=== PATIENT | female | born 1970 | race Two or more races ===

== ENCOUNTER 2017-01-28 07:34 | Inpatient (IN) | payer SELFPAY ==
[~2017-01-28] VITALS: Ht 157.5 cm; Wt 73.2 kg
[2017-01-28 08:09] LABS: Basophils # (auto) 0 uL; Basophils % (auto) 0.3 % (0.0-2.0); CONDITION Y; Eosinophils # (auto) 0.2 uL; Hemoglobin 13.9 g/dL (12.2-16.2); Lymphocytes # (auto) 3.3 uL; Lymphocytes % (auto) 41.7 % (10.0-50.0); Mean Corpuscular Hemoglobin 30.7 pg (28.0-32.0); Mean Corpuscular Hgb Conc. 34.6 g/dL (32.0-36.0); Mean Corpuscular Volume 88.6 fL (80.0-100.0); Mean Platelet Volume 9.9 fL (7.4-10.4); Monocytes # (auto) 0.5 uL; Monocytes % (auto) 6.2 % (0.0-12.0); Neutrophils % (auto) 49.8 % (37.0-80.0); Platelet Count (auto) 284 10^3/uL (140-450); Red Cell Distribution Width 12.9 % (11.6-16.0); White Blood Cell 7.9 10^3/uL (4.4-10.8)
[2017-01-28 08:30] LABS: Albumin 4.1 g/dL (3.4-5.0); BUN/Creatinine Ratio 28.9; Calcium 8.8 mg/dL (8.5-10.1); Magnesium 2.1 mg/dL (1.6-2.6); Potassium 3.7 mmol/L (3.5-5.1)
[2017-01-28 08:34] LABS: Bilirubin, Total 0.4 mg/dL (0.2-1.0); Total Protein 7.7 g/dL (6.4-8.2)
[2017-01-28 08:52] LABS: Urine Bilirubin Negative (Negative); Urine Color Yellow (Yellow); Urine Glucose Normal (Normal); Urine Ketone Negative (Negative); Urine Nitrite Negative (Negative); Urine RBC 58 /hpf (0 - 4); Urine Squamous Epithelial Cell FEW /hpf (<5); Urine Urobilinogen Normal (Negative); Urine pH 5.5 (5.0-8.0)
[2017-01-28 08:53] LABS: Urine Blood 2+ /uL (Negative)
[2017-01-28] MEDS ORDERED: SODIUM CHLORIDE 0.9% 1,000 ML IV ONE ×2 (09:38)
[2017-01-28] MEDS ORDERED: KETOROLAC TROMETH 30 MG/ML 1ML VIAL IV ONE (09:45)
[2017-01-28] MEDS: SODIUM CHLORIDE 0.9% 1,000 ML IV SCH ×2 (12:43→22:37)
[2017-01-28] MEDS ORDERED: PROMETHAZINE HCL 25 MG/ML 1ML IV PRN (12:45)
[2017-01-28] MEDS ORDERED: NITROGLYCERIN 0.4 MG SL TAB SL PRN (12:45)
[2017-01-28] MEDS ORDERED: DEXTROSE (50%) 50ML SYRG IV PRN (12:45)
[2017-01-28] MEDS ORDERED: LORazepam 0.5 MG TAB PO PRN (12:45)
[2017-01-28] MEDS ORDERED: cefTRIAXone 1GM/50ML D5W 50 ML IV ONE (12:45)
[2017-01-28] MEDS ORDERED: TEMAZEPAM 15 MG CAP PO PRN (12:45)
[2017-01-28] MEDS ORDERED: HYDROcodone-ACET 5/325MG TAB PO PRN (12:45)
[2017-01-28] MEDS ORDERED: MORPHINE SULF INJ 2 MG/ML SYRINGE 1ML IV PRN ×2 (12:45)
[2017-01-28] MEDS ORDERED: ACETAMINOPHEN 500 MG TAB PO PRN (12:45)
[2017-01-28 17:13] VITALS: BP 102/64
[2017-01-28] MEDS: ACCU-CHEK COMFORT CURVE STRIP VI SCH (18:22)
[2017-01-28 20:00] VITALS: BP 109/57
[2017-01-28 21:53] VITALS: BP 109/57
[2017-01-28] MEDS: FAMOTIDINE 20 MG TAB PO SCH (22:35)
[2017-01-29] VITALS (7 sets, daily range): BP systolic 112–130; BP diastolic 65–80
[2017-01-29] MEDS: ACCU-CHEK COMFORT CURVE STRIP VI SCH ×4 (06:00→18:00)
[2017-01-29 08:31] LABS: INR 0.95 (0.9-1.15); Partial Thromboplastin Time 24.3 sec (22.64-33.71); Prothrombin Time 10.4 sec (9.37-12.3)
[2017-01-29] MEDS: FAMOTIDINE 20 MG TAB PO SCH ×2 (10:00→22:01)
[2017-01-29] MEDS: cefTRIAXone 1GM/50ML D5W 50 ML IV SCH (11:10)
[2017-01-29] MEDS: SODIUM CHLORIDE 0.9% 1,000 ML IV SCH (11:10)
[2017-01-30 04:39] VITALS: BP 118/77
[2017-01-30] MEDS: ACCU-CHEK COMFORT CURVE STRIP VI SCH ×4 (06:05→17:34)
[2017-01-30 08:00] VITALS: BP 113/65
[2017-01-30] MEDS: cefTRIAXone 1GM/50ML D5W 50 ML IV SCH (08:40)
[2017-01-30 09:32] VITALS: BP 113/65
[2017-01-30] MEDS: FAMOTIDINE 20 MG TAB PO SCH (10:00)
[2017-01-30] MEDS ORDERED: IOHEXOL 300 MG/ML 100ML BOTTLE IJ ONE (13:57)
[2017-01-30 14:47] VITALS: BP 122/75
[2017-01-30] MEDS ORDERED: LIDOCAINE HCL 2 %PF INJ 10ML AMP IJ ONE (15:04)
[2017-01-30] MEDS ORDERED: FUROSEMIDE 20 MG/2 ML VIAL IV ONE (15:04)
[2017-01-30] MEDS ORDERED: PROPOFOL 10 MG/ML 20 ML IV ONE (15:04)
[2017-01-30] MEDS ORDERED: DEXAMETHASONE SOD PHOS 10MG/1ML VIAL INJ ONE (15:04)
[2017-01-30] MEDS ORDERED: GLYCOPYRROLATE 0.2 MG/ML 1ML VIAL ONE (15:04)
[2017-01-30] MEDS ORDERED: fentaNYL CITRATE 100 MCG/2 ML VL ONE (15:04)
[2017-01-30] MEDS ORDERED: ONDANSETRON HCL 4 MG/2 ML VIAL ONE (15:04)
[2017-01-30] MEDS ORDERED: KETOROLAC TROMETH 60MG/2ML VIAL IM ONE (15:04)
[2017-01-30] MEDS ORDERED: MIDAZOLAM HCL 1MG/1ML-2 ML VIAL ONE (15:04)
[2017-01-30] MEDS ORDERED: CIPR-173 PO (15:36)
[2017-01-30] MEDS ORDERED: TRAM50TA2 PO (15:36)
[2017-01-30] MEDS ORDERED: ONDANSETRON HCL 4 MG/2 ML VIAL IV ONE (16:00)
[2017-01-30 16:30] VITALS: BP 122/75
[2017-01-30 16:54] VITALS: BP 134/75
== END 2017-01-30 19:25 | disposition home or self-care (01) | DRG 669 ==
LOC: ER 07:34 → OVERFLOW 07:35 → WEST WING 16:46
PROVIDERS: ADMIT Internal Medicine; ATTEND Internal Medicine
PROC: 0TP98DZ Removal of Intraluminal Device from Ureter, Via Natural or Artificial Opening Endoscopic (ICD-10-PCS; 2017-01-30)
PROC: BT141ZZ Fluoroscopy of Kidneys, Ureters and Bladder using Low Osmolar Contrast (ICD-10-PCS; 2017-01-30)
PROC: 0TC68ZZ Extirpation of Matter from Right Ureter, Via Natural or Artificial Opening Endoscopic (ICD-10-PCS; principal; 2017-01-30 15:08)
DX: N13.2 Hydronephrosis with renal and ureteral calculous obstruction (principal); K80.20 Calculus of gallbladder without cholecystitis without obstruction; N39.0 Urinary tract infection, site not specified; Z87.442 Personal history of urinary calculi
CPT/HCPCS: 36415; 74000; 74176; 76000; 80053; 81001; 81025; 82962; 83036; 83690; 83735; 85025; 85610; 85730; 87086; 96361; 96365; 96375; J0696; J1100; J1885; J2250; J2405; J2704

== ENCOUNTER 2019-09-04 08:51 | Inpatient (IN) | payer SELFPAY ==
[~2019-09-04] VITALS: Ht 154.9 cm; Wt 73.2 kg
[~2019-09-04 08:51] MED LIST: CIPR-173 PO; TRAM50TA2 PO
[2019-09-04] MEDS ORDERED: ONDANSETRON HCL 4 MG/2 ML VIAL IV ONE (09:45)
[2019-09-04] MEDS ORDERED: KETOROLAC TROMETH 30 MG/ML 1ML VIAL IV ONE (09:45)
[2019-09-04] MEDS ORDERED: SODIUM CHLORIDE 0.9% 1,000 ML IV ONE (09:45)
[2019-09-04 09:46] LABS: Urine Bacteria MANY /hpf (None Seen); Urine Blood 2+ /uL (Negative); Urine Mucus FEW (None Seen); Urine Specific Gravity 1.025 (1.001-1.035); Urine WBC 19 /hpf (0 - 5)
[2019-09-04 09:52] LABS: Basophils # (auto) 0 uL; Basophils % (auto) 0.3 % (0.0-2.0); Eosinophils # (auto) 0.1 uL; Eosinophils % (auto) 0.7 % (0.0-7.0); Hematocrit 38.7 % (36.0-46.0); Hemoglobin 13.3 g/dL (12.2-16.2); Lymphocytes # (auto) 1.2 uL; Lymphocytes % (auto) 14.8 % (10.0-50.0); Mean Corpuscular Hemoglobin 30.3 pg (28.0-32.0); Mean Corpuscular Hgb Conc. 34.5 g/dL (32.0-36.0); Monocytes # (auto) 0.6 uL; Monocytes % (auto) 7.5 % (0.0-12.0); Neutrophils # (auto) 6.2 uL; Neutrophils % (auto) 76.7 % (37.0-80.0); Platelet Count (auto) 223 10^3/uL (140-450); White Blood Cell 8.1 10^3/uL (4.4-10.8)
[2019-09-04 10:13] LABS: Albumin 3.8 g/dL (3.4-5.0); Calcium 9.1 mg/dL (8.5-10.1); Potassium 3.8 mmol/L (3.5-5.1)
[2019-09-04] MEDS ORDERED: MORPHINE SULFATE 4 MG/ML SYR/VIAL IV ONE (10:15)
[2019-09-04 10:16] LABS: Bilirubin, Total 0.8 mg/dL (0.2-1.0); Total Protein 7.7 g/dL (6.4-8.2)
[2019-09-04] MEDS ORDERED: cefTRIAXone 1GM/50ML D5W 50 ML IV ONE (10:30)
[2019-09-04] MEDS ORDERED: TAMSULOSIN HYDROCHLORIDE 0.4 MG CAP PO ONE (10:30)
[2019-09-04] MEDS ORDERED: HYDROcodone-ACET 5/325MG TAB PO PRN (12:15)
[2019-09-04] MEDS ORDERED: ACETAMINOPHEN 500 MG TAB PO PRN (12:15)
[2019-09-04] MEDS ORDERED: NITROGLYCERIN 0.4 MG SL TAB SL PRN (12:15)
[2019-09-04] MEDS ORDERED: MORPHINE SULF INJ 2 MG/ML SYRINGE 1ML IV PRN (12:15)
[2019-09-04] MEDS ORDERED: ONDANSETRON HCL 4 MG/2 ML VIAL IV PRN (12:15)
[2019-09-04] MEDS: SODIUM CHLORIDE 0.9% 1,000 ML IV SCH ×2 (12:28→21:00)
[2019-09-04] MEDS ORDERED: FAMOTIDINE 20 MG TAB PO ONE (12:30)
[2019-09-04] MEDS ORDERED: KETOROLAC TROMETH 30 MG/ML 1ML VIAL IV PRN (14:45)
[2019-09-04] MEDS ORDERED: MANNITOL FTV 25% 12.5 GM/50 ML 50 ML IV ONE (15:30)
[2019-09-04 16:00] VITALS: BP 103/56
--- NOTE | 2019-09-04 16:06 | NUR ---
MS admit from [facility]IN[facility] NEVAREZ admitted to tele/MS after SBAR received. Patient oriented to ROBE LOPEZ, primary RN, unit, room, bed, and unit policies regarding patient care and visiting hours. Patient weighed by bed scale and encouraged to call if they need something. All questions and concerns addressed, patient verbalized understanding.
[2019-09-04] MEDS: TAMSULOSIN HYDROCHLORIDE 0.4 MG CAP PO SCH (18:16)
[2019-09-04 22:27] VITALS: BP 100/61
[2019-09-05] VITALS (9 sets, daily range): BP systolic 104–134; BP diastolic 60–77
[2019-09-05] MEDS: SODIUM CHLORIDE 0.9% 1,000 ML IV SCH ×3 (04:11→21:13)
[2019-09-05 06:54] LABS: Basophils # (auto) 0 uL; Basophils % (auto) 0.6 % (0.0-2.0); Eosinophils # (auto) 0.1 uL; Eosinophils % (auto) 3.4 % (0.0-7.0); Hematocrit 31.8 % (36.0-46.0); Hemoglobin 11.4 g/dL (12.2-16.2); Lymphocytes # (auto) 1.9 uL; Lymphocytes % (auto) 47.1 % (10.0-50.0); Mean Corpuscular Hemoglobin 31.4 pg (28.0-32.0); Mean Corpuscular Volume 87.2 fL (80.0-100.0); Monocytes # (auto) 0.4 uL; Monocytes % (auto) 10.7 % (0.0-12.0); Neutrophils # (auto) 1.6 uL; Neutrophils % (auto) 38.2 % (37.0-80.0); Nucleated Red Blood Cells % 0.1 %; Platelet Count (auto) 200 10^3/uL (140-450); Red Blood Cells 3.64 10^6/uL (4.0-5.20); White Blood Cell 4.1 10^3/uL (4.4-10.8)
[2019-09-05 07:04] LABS: BUN/Creatinine Ratio 18.6; Calcium 8.3 mg/dL (8.5-10.1); Potassium 3.7 mmol/L (3.5-5.1)
--- NOTE | 2019-09-05 07:33 | NUR ---
Opening Shift Note Assumed care of patient, awake and alert. No S/S of distress/SOB. Pt denies having any pain at this time. Bed in lowest and locked position with side rails up x2 and call light in reach. Instructed on POC and to call for assist PRN, will continue to monitor for changes Q1hr and PRN.
[2019-09-05] MEDS: cefTRIAXone 1GM/50ML D5W 50 ML IV SCH (09:36)
[2019-09-05] MEDS: FAMOTIDINE 20 MG TAB PO SCH (09:36)
[2019-09-05 12:33] LABS: INR 0.98 (0.9-1.15); Partial Thromboplastin Time 26.8 sec (23.64-32.05)
[2019-09-05] MEDS ORDERED: MIDAZOLAM HCL 1MG/1ML-2 ML VIAL ONE (12:59)
[2019-09-05] MEDS ORDERED: fentaNYL CITRATE 100 MCG/2 ML VL ONE (12:59)
[2019-09-05] MEDS ORDERED: LIDOCAINE 2%HCL (LOCAL ANESTH.) INJ 20ML MDV ONE ×2 (13:03→13:15)
[2019-09-05] MEDS ORDERED: IOHEXOL 350 MG/ML 100ML IJ ONE (13:04)
--- NOTE | 2019-09-05 15:17 | NUR ---
RECEIVED REPORT FROM TRANSFER TABLE OPERATOR. AWAITING PT ARRIVAL.
--- NOTE | 2019-09-05 15:40 | NUR ---
RECEIVED PT FROM NAPHTHA WASHING SYSTEM OPERATOR. PT VITALS ARE STABLE. NO S/S OF DISTRESS OR SOB. PT DENIES HAVING ANY PAIN AT THIS TIME. BED IN LOWEST AND LOCKED POSITION WITH CALL LIGHT WITHIN REACH. CONTINUE TO MONITOR QHR AND PRN.
[2019-09-05] MEDS: MORPHINE SULF INJ 2 MG/ML SYRINGE 1ML IV PRN ×2 (17:18→21:28)
[2019-09-05] MEDS: TAMSULOSIN HYDROCHLORIDE 0.4 MG CAP PO SCH (18:31)
[2019-09-06] MEDS: SODIUM CHLORIDE 0.9% 1,000 ML IV SCH ×2 (03:52→12:08)
[2019-09-06] MEDS: MORPHINE SULF INJ 2 MG/ML SYRINGE 1ML IV PRN (03:52)
[2019-09-06 05:30] VITALS: BP 120/79
[2019-09-06 06:34] LABS: Basophils # (auto) 0 uL; Basophils % (auto) 0.8 % (0.0-2.0); Eosinophils # (auto) 0.1 uL; Eosinophils % (auto) 2.3 % (0.0-7.0); Hematocrit 33.9 % (36.0-46.0); Hemoglobin 11.9 g/dL (12.2-16.2); Lymphocytes # (auto) 1.9 uL; Lymphocytes % (auto) 38.2 % (10.0-50.0); Mean Corpuscular Hemoglobin 30.9 pg (28.0-32.0); Mean Corpuscular Volume 88.2 fL (80.0-100.0); Monocytes # (auto) 0.4 uL; Monocytes % (auto) 8.9 % (0.0-12.0); Neutrophils # (auto) 2.5 uL; Neutrophils % (auto) 49.8 % (37.0-80.0); Nucleated Red Blood Cells % 0.1 %; Platelet Count (auto) 225 10^3/uL (140-450); Red Blood Cells 3.84 10^6/uL (4.0-5.20); Red Cell Distribution Width 12.8 % (11.8-14.3); White Blood Cell 5.1 10^3/uL (4.4-10.8)
[2019-09-06 06:52] LABS: BUN/Creatinine Ratio 15.2; Calcium 8.6 mg/dL (8.5-10.1); Potassium 3.6 mmol/L (3.5-5.1)
[2019-09-06 08:56] VITALS: BP 131/77
[2019-09-06] MEDS: FAMOTIDINE 20 MG TAB PO SCH (10:43)
[2019-09-06] MEDS: cefTRIAXone 1GM/50ML D5W 50 ML IV SCH (10:43)
--- NOTE | 2019-09-06 11:00 | NUR ---
IV insertion IV access obtained, via clean sterile technique by inserting 22 gauge catheter at LEFT HAND after 1 attempt(s). IV secured properly. No trauma to site. Patient tolerated well. LEFT AC IV DC'd with clean sterile technique, catheter fully intact. Pressure dressing applied to site. Patient tolerated well.
--- NOTE | 2019-09-06 11:25 | NUR ---
RECEIVED CALL FROM ILEANA HOLMAN. PER ILEANA HOLMAN THE PT IS CLEARED FOR DISCHARGE AND LITHOTRIPSY TO BE DONE AN OUT PATIENT PROCEDURE.
--- NOTE | 2019-09-06 12:00 | NUR ---
SPOKE TO DR. DUMONT. RN NOTIFIED MD THAT THE PATIENT HAS BEEN CLEARED FOR DISCHARGE FROM ILEANA HOLMAN. AWARE.
[2019-09-06 12:30] VITALS: BP 122/75
[2019-09-06 14:07] VITALS: BP 131/77
--- NOTE | 2019-09-06 15:18 | NUR ---
Discharge instructions given as ordered. Encourage to follow up with PMD as instructed. All questions and concerns addressed. Patient verbalized understanding. Medication reconciliation form completed and copy given to patient. No Home medications held in Pharmacy returned to patient. Pt refused vaccines. IV removed with catheter intact, pressure dressing applied.
--- NOTE | 2019-09-06 15:45 | NUR ---
Patient taken to vehicle via wheelchair with all personal belongings, accompanied by staff and family member. No distress noted at time of departure.
[2019-09-09] MEDS ORDERED: HYDROcodone-ACET 5/325MG TAB PO PRN (14:45)
== END 2019-09-06 15:45 | disposition home or self-care (01) | DRG 444 ==
LOC: ER 08:51 → OVERFLOW 08:52 → EAST 16:14
PROVIDERS: ADMIT Nurse Practitioner Acute Care; ATTEND Internal Medicine
PROC: 0T9130Z Drainage of Left Kidney with Drainage Device, Percutaneous Approach (ICD-10-PCS; principal; 2019-09-05)
PROC: BT42ZZZ Ultrasonography of Left Kidney (ICD-10-PCS; 2019-09-05)
PROC: BT1F1ZZ Fluoroscopy of Left Kidney, Ureter and Bladder using Low Osmolar Contrast (ICD-10-PCS; 2019-09-05)
DX: K80.20 Calculus of gallbladder without cholecystitis without obstruction (principal); N17.0 Acute kidney failure with tubular necrosis; N13.6 Pyonephrosis; N20.2 Calculus of kidney with calculus of ureter; E66.9 Obesity, unspecified; E86.0 Dehydration; N18.3 Chronic kidney disease, stage 3 (moderate); Z68.30 Body mass index [BMI] 30.0-30.9, adult; Z80.0 Family history of malignant neoplasm of digestive organs
CPT/HCPCS: 36415; 74176; 76942; 80048; 80053; 81001; 85025; 85610; 85730; 87086; 99152; 99153; C1729; G0378; J0696; J1885; J2250; J2405

== ENCOUNTER 2019-09-24 12:43 | Emergency (ER) | payer SELFPAY ==
[~2019-09-24] VITALS: Ht 154.9 cm; Wt 74.4 kg
[2019-09-24 13:54] VITALS: BP 101/63
== END 2019-09-24 16:43 | disposition home or self-care (01) ==
LOC: ER 12:43
DX: T83.092A Other mechanical complication of nephrostomy catheter, initial encounter (principal); Y92.89 Other specified places as the place of occurrence of the external cause

== ENCOUNTER 2019-10-04 00:03 | Inpatient (IN) | payer SELFPAY ==
[~2019-10-04] VITALS: Ht 154.9 cm; Wt 73.5 kg
[2019-10-04 01:10] LABS: Urine Bacteria FEW /hpf (None Seen); Urine Blood 1+ /uL (Negative); Urine Specific Gravity 1.007 (1.001-1.035); Urine WBC 4 /hpf (0 - 5)
[2019-10-04] MEDS ORDERED: SODIUM CHLORIDE 0.9% 1,000 ML IV ONE (01:15)
[2019-10-04] MEDS ORDERED: ONDANSETRON HCL 4 MG/2 ML VIAL IV ONE (01:15)
[2019-10-04] MEDS ORDERED: KETOROLAC TROMETH 15 mg/ml 1ML VL IV ONE (01:15)
[2019-10-04 01:24] LABS: Basophils # (auto) 0.1 uL; Basophils % (auto) 0.6 % (0.0-2.0); Eosinophils # (auto) 0.2 uL; Eosinophils % (auto) 1.9 % (0.0-7.0); Hematocrit 36.8 % (36.0-46.0); Hemoglobin 12.6 g/dL (12.2-16.2); Lymphocytes % (auto) 20.6 % (10.0-50.0); Mean Corpuscular Hemoglobin 30.3 pg (28.0-32.0); Mean Corpuscular Hgb Conc. 34.2 g/dL (32.0-36.0); Mean Corpuscular Volume 88.6 fL (80.0-100.0); Monocytes % (auto) 10.5 % (0.0-12.0); Neutrophils # (auto) 6.4 uL; Neutrophils % (auto) 66.4 % (37.0-80.0); Platelet Count (auto) 217 10^3/uL (140-450); Red Blood Cells 4.15 10^6/uL (4.0-5.20); Red Cell Distribution Width 13.4 % (11.8-14.3); White Blood Cell 9.6 10^3/uL (4.4-10.8)
[2019-10-04 01:45] LABS: Albumin 3.5 g/dL (3.4-5.0); Amylase 18 U/L (25-115); Anion Gap 5 (5-15); Blood Urea Nitrogen 7 mg/dL (7-18); Calcium 8.7 mg/dL (8.5-10.1); Carbon Dioxide 26 mmol/L (21-32); Chloride 106 mmol/L (98-107); Glucose 96 mg/dL (74-106); Lipase 80 U/L (73-393); Magnesium 2.2 mg/dL (1.6-2.6); Potassium 4.1 mmol/L (3.5-5.1); Sodium 137 mmol/L (136-145)
[2019-10-04 01:46] LABS: Alanine Aminotransferase 81 U/L (13-56); Aspartate Aminotransferase 78 U/L (15-37); BUN/Creatinine Ratio 12.1; GFR African American 141 mL/min; GFR Non-African American 116 mL/min
[2019-10-04 01:52] LABS: Alkaline Phosphatase 158 U/L (45-117); Bilirubin, Total 0.8 mg/dL (0.2-1.0); Total Protein 7.7 g/dL (6.4-8.2)
[2019-10-04 02:06] LABS: INR 1.08 (0.9-1.15); Partial Thromboplastin Time 30.8 sec (23.64-32.05)
[2019-10-04] MEDS ORDERED: ONDANSETRON HCL 4 MG/2 ML VIAL IV PRN (06:30)
[2019-10-04] MEDS ORDERED: ACETAMINOPHEN 325 MG TAB PO PRN (06:30)
[2019-10-04] MEDS ORDERED: HYDROcodone-ACET 5/325MG TAB PO PRN (06:30)
[2019-10-04] MEDS ORDERED: TEMAZEPAM 15 MG CAP PO PRN (06:30)
[2019-10-04] MEDS ORDERED: ACET-1156 PO (09:18)
[2019-10-04] MEDS: FAMOTIDINE 20 MG TAB PO SCH ×2 (10:18→21:08)
[2019-10-04] MEDS ORDERED: cefTRIAXone 1GM/50ML D5W 50 ML IV ONE (12:45)
[2019-10-04 13:00] VITALS: BP 108/75
[2019-10-04 17:00] VITALS: BP 93/52
[2019-10-04 22:00] VITALS: BP 125/73
[2019-10-05 05:34] VITALS: BP 105/65
[2019-10-05 07:04] LABS: Basophils # (auto) 0.1 uL; Basophils % (auto) 0.7 % (0.0-2.0); Eosinophils # (auto) 0.2 uL; Eosinophils % (auto) 2.4 % (0.0-7.0); Hematocrit 36.3 % (36.0-46.0); Hemoglobin 12.3 g/dL (12.2-16.2); Lymphocytes # (auto) 1.8 uL; Lymphocytes % (auto) 23.2 % (10.0-50.0); Mean Corpuscular Hemoglobin 30.1 pg (28.0-32.0); Mean Corpuscular Hgb Conc. 33.9 g/dL (32.0-36.0); Mean Corpuscular Volume 88.9 fL (80.0-100.0); Monocytes # (auto) 0.7 uL; Monocytes % (auto) 8.7 % (0.0-12.0); Platelet Count (auto) 260 10^3/uL (140-450); Red Blood Cells 4.09 10^6/uL (4.0-5.20); White Blood Cell 7.7 10^3/uL (4.4-10.8)
[2019-10-05 07:41] LABS: Albumin 3.2 g/dL (3.4-5.0); BUN/Creatinine Ratio 16.7; Bilirubin, Total 0.6 mg/dL (0.2-1.0); Calcium 9.1 mg/dL (8.5-10.1); Potassium 3.9 mmol/L (3.5-5.1); Total Protein 7.2 g/dL (6.4-8.2)
[2019-10-05 08:02] VITALS: BP 126/80
[2019-10-05 09:00] VITALS: BP 126/80
[2019-10-05] MEDS ORDERED: cefTRIAXone 1GM/50ML D5W 50 ML IV SCH (09:00)
[2019-10-05] MEDS: FAMOTIDINE 20 MG TAB PO SCH (09:08)
[2019-10-05 13:00] VITALS: BP 111/74
[2019-10-05 14:25] VITALS: BP 111/74
== END 2019-10-05 15:30 | disposition home or self-care (01) | DRG 699 ==
LOC: ER 00:03 → OVERFLOW 00:04 → EAST 08:52
PROVIDERS: ADMIT Nurse Practitioner; ATTEND Internal Medicine Nephrology
DX: N99.522 Malfunction of incontinent external stoma of urinary tract (principal); N20.2 Calculus of kidney with calculus of ureter; K80.20 Calculus of gallbladder without cholecystitis without obstruction; M47.816 Spondylosis without myelopathy or radiculopathy, lumbar region; N28.1 Cyst of kidney, acquired; Y83.8 Other surgical procedures as the cause of abnormal reaction of the patient, or of later complication, without mention of misadventure at the time of the procedure; Y82.8 Other medical devices associated with adverse incidents; Y92.89 Other specified places as the place of occurrence of the external cause; Z80.0 Family history of malignant neoplasm of digestive organs; Z87.442 Personal history of urinary calculi
CPT/HCPCS: 36415; 71046; 74176; 80053; 81001; 81025; 82150; 83690; 83735; 84484; 85025; 85610; 85730; 87081; 93005; G0378; J0696; J2405

== ENCOUNTER 2019-10-06 17:22 | Emergency (ER) | payer SELFPAY ==
[~2019-10-06] VITALS: Ht 154.9 cm; Wt 75.3 kg
[~2019-10-06 17:22] MED LIST changes: +ACET-1156 PO; -CIPR-173 PO; -TRAM50TA2 PO
[2019-10-06 18:37] VITALS: BP 133/55
== END 2019-10-06 19:47 | disposition home or self-care (01) ==
LOC: ER 17:22
DX: L98.9 Disorder of the skin and subcutaneous tissue, unspecified (principal); Z87.442 Personal history of urinary calculi